=== PATIENT | female | born 1935 | race Caucasian/White ===

== ENCOUNTER 2020-04-13 11:41 | Observation (INO) | payer MEDICARE, SELFPAY ==
[2020-04-13] VITALS (10 sets, daily range): BP systolic 109–162; BP diastolic 50–79; PULSE 61–84; RESP 12–30; TEMP 36.2–36.5; O2SAT 96–100; BMI 19.0
--- NOTE | 2020-04-13 12:06 | XR_ITS ---
WS: [id number] Exam: XR chest 1V portable [id number] Date/Time of Exam: 04/13/2020 12:06 PM Reason For Exam: weakness Comparison 11/22/2017. The lungs are clear and fully inflated. Unremarkable cardiomediastinal structures. No pleural effusio ns. Signs of median sternotomy. Bony elements are intact. XR/XR chest 1V portable [id number] IMPRESSION: 1. No acute cardiopulmonary finding. No change.
--- NOTE | 2020-04-13 12:09 | ECG_ITS ---
[facility] Test Date: 2020-04-13 Pat Name: Anamika Mo Department: Room: Gender: Female Materials Assistant: : [id number] Requested By: Charlie Rossi Order Number: [id number] Adams MD: Gina Palacio M.D. Measurements Intervals [place] Rate: 63 P: 89 RI: 158 QRS: 2 QRSD: 95 T: 106 QT: 467 QTc: 482 Interpretive Statements SINUS RHYTHM LEFT VENTRICULAR HYPERTROPHY AND ST-T CHANGE [VOLTAGE CRITERIA PLUS ST/T ABNORMALITY] POSSIBLE SEPTAL MYOCARDIAL INFARCTION , PROBABLY OLD [30 ms Q WAVE IN V1/V2] No previous ECG available for comparison Electronically Signed On 04-13-2020 16:51:30 GENERAL OPHTHALMOLOGIST by Gina Palacio M.D. [id number] des
--- NOTE | 2020-04-13 12:12 | W.ED.GENADLT ---
HPI - General Adult General: Chief complaint: General Medical Stated complaint: PCP sent for dehyrdration Time Seen by Provider: 04/13/20 11:59 History of Present Illness: HPI narrative: The patient is an 84-year-old female who comes to the ER complaining of weakness, dehydration, and worsening diarrhea for 5 days. She was sent from Dr. Ervin's office for evaluation. She has had chronic diarrhea for 5 days however she says she has lost 30 pounds in 30 days and over the last 5 days her diarrhea is completely liquid with undigested food and some pills are even and it. She says she has seen multiple specialist about this over the years with no improvement in her symptoms. She is having some abdominal cramping with diarrhea but currently no pain in the ER. At home she has vomited once or twice. She also denies chest pain, shortness of breath, nausea, vomiting Onset (ago): day(s) Severity: moderate Associated symptoms: Reports decreased appetite, nausea, vomiting and weakness; Deny chest pain, confusion, cough, dyspnea or rash Review of Systems General: Reports: 10 or more systems reviewed and unremarkable except in HPI and below Const: Denies: fatigue Eyes: Denies: change in vision, blurry vision or eye redness ENMT: Denies: throat pain, swelling of lips/tongue, ear or mastoid pain or nasal congestion Card: Denies: chest pain Resp: Denies: dyspnea, productive cough or non-productive cough GI: Reports: nausea and vomiting : Denies: flank pain, difficulty voiding, urinary frequency or urinary urgency Musc: Denies: neck pain, back pain, extremity pain, joint pain, joint redness, limited range of motion or muscle weakness Skin/Breast: Denies: rash, pruritus, erythema, skin pain or skin tenderness Neuro: Denies: confusion Psych: Denies: anxiety or depression Endo: Denies: polyuria All/Imm: Denies: urticaria, throat swelling or tongue swelling PFSH ED PFSH: Social History (Updated 04/13/20 @ 11:57 by Emmanuel Cantu RN) Smoking and tobacco status: never smoked Alcohol intake: never Substance/Drug Use: never Physical Exam Const: COMMON NORMALS: no acute distress, average body habitus, patient oriented x3, no limitations, healthy appearing, alert and well nourished GENERAL APPEARANCE: cooperative, comfortable, well kempt and well developed ORIENTATION/CONSCIOUSNESS: Yes awake, Yes oriented to person, Yes oriented to place and Yes oriented to time HENMT: COMMON NORMALS: normocephalic, external ears normal and Normal external nose present HEAD & SCALP: normal to inspection and normocephalic NOSE: Normal external nose present EXTERNAL EAR: Yes external ears normal MOUTH: Normal oral and palatal mucosa present THROAT: posterior oropharynx normal Eye: COMMON NORMALS: Equal, round and reactive pupils present and EOMs intact bilaterally GENERAL EYE: appearance normal, both eyes and all related structures PUPIL: Yes Equal, round and reactive pupils present Neck/C-Spine: COMMON NORMALS: full ROM, no lymphadenopathy, no meningeal signs and no JVD GENERAL: Yes normal visual inspection Lymph: LYMPHATIC: no lymphadenopathy noted Chest: COMMONS NORMALS: normal inspection of the chest and normal palpation of entire chest wall Resp: COMMON NORMALS: normal respiratory effort, No retractions, No use of accessory muscles, clear to auscultation bilaterally and percussion normal EFFORT & INSPECTION: Yes able to speak in complete sentences AUSCULTATION: clear to auscultation bilaterally PERCUSSION: percussion normal Cardio: COMMON NORMALS: no JVD, regular rate, regular rhythm, S1 normal heart sound present, S2 normal heart sound present and Peripheral pulses 2+ throughout RATE: regular rate RHYTHM: regular rhythm HEART SOUNDS: S1 normal heart sound present and S2 normal heart sound present PERIPHERAL PULSES: Peripheral pulses 2+ throughout GI: COMMON NORMALS: Normal to inspection, nondistended, normoactive bowel sounds present, Soft to palpation, non-tender and no masses INSPECTION: Yes normal to inspection PALPATION: Yes Soft to palpation : COMMON NORMALS: Yes no CVA tenderness BLADDER/KIDNEY EXAM: Yes no CVA tenderness Back/Pelvis: COMMON NORMALS: no CVA tenderness, thoracic and lumbar spine normal to inspection, no thoracic nor lumbar tenderness and thoraco-lumbar ROM normal Extremity: COMMON NORMALS: normal to inspection, full ROM, capillary refill normal, no joint enlargement and no pedal edema GENERAL: Yes normal exam except as noted Neuro: COMMON NORMALS: patient oriented x3, CN's II-XII intact bilaterally, moves all extremities, no focal motor deficits, no sensory deficits noted and gait normal SENSORIUM/ORIENTATION: Yes alert, Yes oriented to person, Yes oriented to place and Yes oriented to time MENINGEAL SIGNS: Yes no meningeal signs Psych: COMMON NORMALS: mental status grossly normal, Normal thought process present, cooperative, normal affect and speech normal APPEARANCE: Yes well kempt ATTITUDE: Yes calm SPEECH: Yes normal speech THOUGHT PROCESS: Normal thought process present Skin: COMMON NORMALS: no rashes or lesions noted GENERAL SKIN EXAM: no rashes or lesions noted Course Vital Signs: Vital signs: Vital Signs Temperature 97.1 F L 04/13/20 11:51 Pulse Rate 74 04/13/20 16:51 Respiratory Rate 30 H 04/13/20 16:51 Blood Pressure 145/79 04/13/20 16:51 Pulse Oximetry 100 04/13/20 16:51 MDM - General Adult MDM Narrative: Medical decision making narrative: The patient is a 84-year-old female with chronic diarrhea and diabetes who comes to the ER with worsening diarrhea and weight loss as well as weakness. Her potassium is low and she has acute renal failure from the dehydration. Also her glucose is elevated and she is in mild diabetic ketoacidosis. She was given IV fluids and insulin and discussed with Dr. Sainz who accepts pending repeat BMP to see if DKA requires drip vs SQ dose. Dr. Sainz accepts to 2nd floor Lab Data: Labs: Lab Results 04/13/20 04/13/20 04/13/20 Range/Units 12:10 12:10 12:10 WBC 7.3 (4.0-10.0) 10^3/ uL RBC 4.72 (4.1-5.3) 10^6/u L Hgb 12.1 (11.5-15.3) g/dL Hct 39.7 (37.0-47.0) % MCV 84.1 (81-99) fL MCH 25.6 L (28.0-34.0) pg MCHC 30.5 (30.0-36.0) g/dL RDW 14.1 (12.1-15.1) % Plt Count 395 (130-400) 10^3/c mm MPV 10.9 H (7.4-10.4) fL Neut % (Auto) 68.1 % Lymph % (Auto) 22.8 % [place] % (Auto) 7.4 % Eos % (Auto) 0.5 % Baso % (Auto) 0.7 % Neut # (Auto) 5.00 (1.8-7.7) 10^3/u L Lymph # (Auto) 1.7 (0.8-4.8) 10^3/u L [place] # (Auto) 0.5 (0.2-0.9) 10^3/u L Eos # (Auto) 0.0 (0.0-0.8) 10^3/u L Baso # (Auto) 0.1 (0.0-0.1) 10^3/u L Nucleated RBC % (a uto) 0 % Nucleated RBCs # 0.0 /100WBC Specimen Type Sample Site ABG pH (7.35-7.45) ABG pCO2 (35-45) mmHg ABG pO2 (80.0-100.0) mmH g ABG HCO3 (22-26) mmol/L ABG Base Excess (-2.0-2.0) mmol/ L Geo Test Hematocrit (37-47) % Hgb O2 Saturation (95-100) % Carboxyhemoglobin (0.4-20.1) %THgb Methemoglobin (0.4-1.5) % Total Hemoglobin (12-16) g/dL O2 Delivery Device FiO2 % Senior Buyer ID Sodium 135 L (136-145) mmol/L Potassium 2.6 L* (3.5-5.1) mmol/L Chloride 88 L (98-107) mmol/L Carbon Dioxide 25 (22-29) mmol/L Anion Gap 24.6 H (5-19) BUN 44 H (8-23) mg/dL Creatinine 1.6 H (0.5-0.9) mg/dL GFR Calculation Not Reportable Glucose 476 H (65-115) mg/dL POC Glucose (70-110) mg/dL Calculated Osmolal ity 312 H (285-295) mOsm/k g Lactate 1.6 (0.5-2.2) mmol/L Calcium 10.2 (8.5-10.5) mg/dL Phosphorus 3.5 (2.5-4.5) mg/dL Magnesium 2.0 (1.7-2.3) mg/dL Total Bilirubin 0.4 (0.15-1.2) mg/dL AST 10 (0-32) U/L ALT 7 (0-33) U/L Alkaline Phosphata se 119 H (35-105) IU/L Troponin T Gen 5 n g/L (0-10) ng/L NT-Pro-B Natriuret Pep 1434 H (0-450) pg/mL Total Protein 8.0 (6.6-8.7) g/dL Albumin 4.2 (3.5-5.2) g/dL Globulin 3.8 (1.3-4.6) g/dL Lipase 19 (13-60) U/L Urine Color (Yellow) Urine Appearance (CLEAR) Urine pH (5-7) Ur Specific Gravit y (1.005-1.030) Urine Protein (Negative) Urine Glucose (UA) (Normal) Urine Ketones (Negative) Urine Blood (Negative) Urine Nitrate (Negative) Urine Bilirubin (Negative) Urine Urobilinogen (Negative) mg/dL Ur Leukocyte Nohelia ase (Negative) Serum Ketones (Negative) 04/13/20 04/13/20 04/13/20 Range/Units 12:10 12:10 14:19 WBC (4.0-10.0) 10^3/ uL RBC (4.1-5.3) 10^6/u L Hgb (11.5-15.3) g/dL Hct (37.0-47.0) % MCV (81-99) fL MCH (28.0-34.0) pg MCHC (30.0-36.0) g/dL RDW (12.1-15.1) % Plt Count (130-400) 10^3/c mm MPV (7.4-10.4) fL Neut % (Auto) % Lymph % (Auto) % [place] % (Auto) % Eos % (Auto) % Baso % (Auto) % Neut # (Auto) (1.8-7.7) 10^3/u L Lymph # (Auto) (0.8-4.8) 10^3/u L [place] # (Auto) (0.2-0.9) 10^3/u L Eos # (Auto) (0.0-0.8) 10^3/u L Baso # (Auto) (0.0-0.1) 10^3/u L Nucleated RBC % (a uto) % Nucleated RBCs # /100WBC Specimen Type Arterial Sample Site Brachial, left ABG pH 7.33 L (7.35-7.45) ABG pCO2 43.6 (35-45) mmHg ABG pO2 61.8 L (80.0-100.0) mmH g ABG HCO3 22.9 (22-26) mmol/L ABG Base Excess -3.0 L (-2.0-2.0) mmol/ L Geo Test N/a Hematocrit 32.9 L (37-47) % Hgb O2 Saturation 87.9 L (95-100) % Carboxyhemoglobin < 0.0 L (0.4-20.1) %THgb Methemoglobin 0.7 (0.4-1.5) % Total Hemoglobin 10.7 L (12-16) g/dL O2 Delivery Device Room air FiO2 21.0 % Senior Buyer ID Amh Sodium (136-145) mmol/L Potassium (3.5-5.1) mmol/L Chloride (98-107) mmol/L Carbon Dioxide (22-29) mmol/L Anion Gap (5-19) BUN (8-23) mg/dL Creatinine (0.5-0.9) mg/dL GFR Calculation Glucose (65-115) mg/dL POC Glucose (70-110) mg/dL Calculated Osmolal ity (285-295) mOsm/k g Lactate (0.5-2.2) mmol/L Calcium (8.5-10.5) mg/dL Phosphorus (2.5-4.5) mg/dL Magnesium (1.7-2.3) mg/dL Total Bilirubin (0.15-1.2) mg/dL AST (0-32) U/L ALT (0-33) U/L Alkaline Phosphata se (35-105) IU/L Troponin T Gen 5 n g/L 52 H (0-10) ng/L NT-Pro-B Natriuret Pep (0-450) pg/mL Total Protein (6.6-8.7) g/dL Albumin (3.5-5.2) g/dL Globulin (1.3-4.6) g/dL Lipase (13-60) U/L Urine Color (Yellow) Urine Appearance (CLEAR) Urine pH (5-7) Ur Specific Gravit y (1.005-1.030) Urine Protein (Negative) Urine Glucose (UA) (Normal) Urine Ketones (Negative) Urine Blood (Negative) Urine Nitrate (Negative) Urine Bilirubin (Negative) Urine Urobilinogen (Negative) mg/dL Ur Leukocyte Nohelia ase (Negative) Serum Ketones Positive H (Negative) 04/13/20 04/13/20 04/13/20 Range/Units 14:25 16:30 16:40 WBC (4.0-10.0) 10^3/ uL RBC (4.1-5.3) 10^6/u L Hgb (11.5-15.3) g/dL Hct (37.0-47.0) % MCV (81-99) fL MCH (28.0-34.0) pg MCHC (30.0-36.0) g/dL RDW (12.1-15.1) % Plt Count (130-400) 10^3/c mm MPV (7.4-10.4) fL Neut % (Auto) % Lymph % (Auto) % [place] % (Auto) % Eos % (Auto) % Baso % (Auto) % Neut # (Auto) (1.8-7.7) 10^3/u L Lymph # (Auto) (0.8-4.8) 10^3/u L [place] # (Auto) (0.2-0.9) 10^3/u L Eos # (Auto) (0.0-0.8) 10^3/u L Baso # (Auto) (0.0-0.1) 10^3/u L Nucleated RBC % (a uto) % Nucleated RBCs # /100WBC Specimen Type Sample Site ABG pH (7.35-7.45) ABG pCO2 (35-45) mmHg ABG pO2 (80.0-100.0) mmH g ABG HCO3 (22-26) mmol/L ABG Base Excess (-2.0-2.0) mmol/ L Geo Test Hematocrit (37-47) % Hgb O2 Saturation (95-100) % Carboxyhemoglobin (0.4-20.1) %THgb Methemoglobin (0.4-1.5) % Total Hemoglobin (12-16) g/dL O2 Delivery Device FiO2 % Senior Buyer ID Sodium 137 (136-145) mmol/L Potassium 3.9 (3.5-5.1) mmol/L Chloride 97 L (98-107) mmol/L Carbon Dioxide 27 (22-29) mmol/L Anion Gap 16.9 (5-19) BUN 43 H (8-23) mg/dL Creatinine 1.1 H (0.5-0.9) mg/dL GFR Calculation Not Reportable Glucose 306 H (65-115) mg/dL POC Glucose 300 H (70-110) mg/dL Calculated Osmolal ity 306 H (285-295) mOsm/k g Lactate (0.5-2.2) mmol/L Calcium 9.1 (8.5-10.5) mg/dL Phosphorus (2.5-4.5) mg/dL Magnesium (1.7-2.3) mg/dL Total Bilirubin (0.15-1.2) mg/dL AST (0-32) U/L ALT (0-33) U/L Alkaline Phosphata se (35-105) IU/L Troponin T Gen 5 n g/L (0-10) ng/L NT-Pro-B Natriuret Pep (0-450) pg/mL Total Protein (6.6-8.7) g/dL Albumin (3.5-5.2) g/dL Globulin (1.3-4.6) g/dL Lipase (13-60) U/L Urine Color Yellow (Yellow) Urine Appearance Clear (CLEAR) Urine pH 5 (5-7) Ur Specific Gravit y 1.015 (1.005-1.030) Urine Protein Neg (Negative) Urine Glucose (UA) 4+ H (Normal) Urine Ketones 2+ H (Negative) Urine Blood Neg (Negative) Urine Nitrate Negative (Negative) Urine Bilirubin Neg (Negative) Urine Urobilinogen Norm (Negative) mg/dL Ur Leukocyte Nohelia ase Negative (Negative) Serum Ketones (Negative) Discharge Plan Discharge Patient Disposition: Admitted As Inpatient Clinical Impression: Acute hypokalemia Acute renal failure Qualifiers: Acute renal failure type: unspecified Qualified Code(s): N17.9 - Acute kidney failure, unspecified Diabetic keto-acidosis Qualifiers: Diabetes mellitus type: type 2 Diabetes mellitus complication detail: without coma Qualified Code(s): E11.10 - Type 2 diabetes mellitus with ketoacidosis without coma Condition: Stable Coding Level of Care Code ED Billing Associate for Chg Fwd Exam Comprehensive
[2020-04-13] MEDS: ondansetron 2 mg/ML SDV 2 mL 4 MG IVP (12:19)
[2020-04-13] MEDS: sodium chloride 0.9% 1,000 ML 999 ML IV (12:19)
[2020-04-13 12:34] LABS: Basophils # 0.1 10^3/uL (0.0-0.1); Basophils % 0.7 %; Eosinophils % 0.5 %; Hematocrit 39.7 % (37.0-47.0); Hemoglobin 12.1 g/dL (11.5-15.3); Lymphocytes # 1.7 10^3/uL (0.8-4.8); Lymphocytes % 22.8 %; Mean Corpuscular HGB Conc 30.5 g/dL (30.0-36.0); Mean Corpuscular Hemoglobin 25.6 pg (28.0-34.0); Mean Corpuscular Volume 84.1 fL (81-99); Mean Platelet Volume 10.9 fL (7.4-10.4); Monocytes # 0.5 10^3/uL (0.2-0.9); Monocytes % 7.4 %; Neutrophils % 68.1 %; Nucleated Red Blood Cells % 0 %; Platelet Count 395 10^3/cmm (130-400); Red Blood Count 4.72 10^6/uL (4.1-5.3); Red Cell Distribution Width 14.1 % (12.1-15.1); White Blood Count 7.3 10^3/uL (4.0-10.0)
[2020-04-13 12:54] LABS: Lactate (Lactic Acid level) 1.6 mmol/L (0.5-2.2)
[2020-04-13 12:55] LABS: Troponin T (5th) Once 52 ng/L (0-10)
[2020-04-13 13:54] LABS: Alanine Aminotransferase 7 U/L (0-33); Albumin Level 4.2 g/dL (3.5-5.2); Alkaline Phosphatase 119 IU/L (35-105); Anion Gap 24.6 (5-19); Aspartate Amino Transferase 10 U/L (0-32); Blood Urea Nitrogen 44 mg/dL (8-23); Calcium 10.2 mg/dL (8.5-10.5); Carbon Dioxide 25 mmol/L (22-29); Chloride 88 mmol/L (98-107); Globulin 3.8 g/dL (1.3-4.6); Glucose 476 mg/dL (65-115); Lipase 19 U/L (13-60); NT Pro B Type Natriuretic Pept 1434 pg/mL (0-450); Osmolality Calculated 312 mOsm/kg (285-295); Phosphorus 3.5 mg/dL (2.5-4.5); Sodium 135 mmol/L (136-145); Total Bilirubin 0.4 mg/dL (0.15-1.2)
[2020-04-13 14:00] LABS: Potassium 2.6 mmol/L (3.5-5.1)
[2020-04-13 14:30] LABS: ABG PCO2 43.6 mmHg (35-45); ABG PH Result 7.33 (7.35-7.45); Arterial Blood Gas Hematocrit 32.9 % (37-47); Blood Gas Operator Identificat AMH; Blood Gas Sample Site Brachial, left; Blood Gas Sample Type Arterial; Carboxyhemoglobin < 0.0 %THgb (0.4-20.1); HCO3 ABG 22.9 mmol/L (22-26); HGB O2 Sat 87.9 % (95-100); Methemoglobin 0.7 % (0.4-1.5); Oxygen Device ROOM AIR; PO2 ABG 61.8 mmHg (80.0-100.0); Total Hemoglobin 10.7 g/dL (12-16)
[2020-04-13] MEDS: lidocaine 1% 5 ML in potassium chloride premix 100 ML 25 ML IV (14:30)
[2020-04-13] MEDS: insulin regular-human 100 units/1 mL 10 UNIT IVP (14:31)
[2020-04-13 15:00] LABS: Ketone (Acetest) Serum Positive (Negative)
[2020-04-13 15:07] LABS: Add Urine Microscopic? NO
[2020-04-13 15:27] LABS: Bilirubin Urine Neg (Negative); Blood Urine Neg (Negative); Glucose Urine UA 4+ (Normal); Ketones Urine 2+ (Negative); Leukocyte Esterase Urine Negative (Negative); Nitrate Urine Negative (Negative); Protein Urine Neg (Negative); Specific Gravity, Urine 1.015 (1.005-1.030); Urine Appearance Clear (CLEAR); Urine Color Yellow (Yellow); Urobilinogen Urine Norm (Negative); pH Urine 5 (5-7)
[2020-04-13 16:43] LABS: Glucose Point of Care 300 mg/dL (70-110)
--- NOTE | 2020-04-13 16:56 | PM.HP ---
Providers/Chief Complaint Admitting Physician: Carolina Sainz MD Chief Complaint: Sent from [place]/Needing Fluids/Unable to Eat History of Present Illness Anamika Mo is a 84 year old female with chornic diarrhea of unclear etiology, being evaluted at [place] by GI, thought to be possible pancreatic cause, has had significant weight loss in the last 3-4 months, went for f/up with PCP where she was found to be appearing more dehydrated than previously and sent to ER. Labs notable for blood sugar 476 (has not taken insulin since yesterday), ketonuria and hypokalemia with K of 2.6. Reports generalized weakness. No fever, abdominal pain, vomiting. Diarrhea 4-5 episodes per day with passage of undigested food, unchanged from recent baseline Review of Systems General: Reports: 10 or more systems reviewed and unremarkable except in HPI and below Const: Denies: fever(s), chills or body aches Eyes: Denies: change in vision, blurry vision or photophobia ENMT: Reports: hoarseness; Denies: throat pain, enlarged tonsils, odynophagia or nasal congestion Card: Denies: chest pain, palpitations, irregular heart rhythm, edema, swelling of feet/ankles, lightheadedness, pre-syncope, dyspnea on exertion or orthopnea Resp: Denies: dyspnea, productive cough, non-productive cough, wheezing, stridor, pain on inspiration, change in phlegm color, hemoptysis or chest congestion GI: Denies: abdominal pain, nausea, vomiting, hematemesis, coffee ground emesis, dysphagia, heartburn, diarrhea, constipation, GI cramping, change in stool character, hematochezia or melena : Denies: flank pain, difficulty voiding, dysuria, urinary frequency, urinary urgency, urinary hesitancy or hematuria Musc: Denies: neck pain, back pain, extremity pain, joint swelling, joint warmth or deformity Neuro: Denies: headache(s), numbness in extremities, weakness in extremities, sensory changes, difficulty walking, frequent falls, dizziness, vertigo, behavioral changes, Slurred speech present or seizure-like activity Psych: Denies: anxiety, depression, suicidal ideation or homicidal ideation Endo: Denies: polyuria, polydipsia, tired all the time, cold intolerance or hot flashes Iam/Lymph: Denies: easy bruising or easy bleeding Medications/Allergies Home Medications Medication Instructions Recorded Confirmed Last Taken Type buspirone 10 mg PO TID PRN 04/13/20 04/13/20 04/12/20 History clopidogrel 75 mg PO DAILY@0900 04/13/20 04/13/20 04/12/20 History cyanocobalamin (vitamin B-12) 1,000 mcg IM Q30D 04/13/20 04/13/20 Unknown History furosemide 20 mg PO DAILY@0904/13/20 04/13/20 04/12/20 History insulin detemir U-100 [Levemir 30 unit SUBCUT DAILY@199904/13/20 04/13/20 04/11/20 History FlexTouch U-100 Insuln] levothyroxine 50 mcg PO DAILY@0904/13/20 04/13/20 04/12/20 History liothyronine 5 mcg PO DAILY@0904/13/20 04/13/20 04/12/20 History lisinopril 20 mg PO DAILY@0904/13/20 04/13/20 04/12/20 History metoprolol succinate 50 mg PO BID@0900,199904/13/20 04/13/20 04/12/20 History venlafaxine 150 mg PO DAILY@0904/13/20 04/13/20 04/12/20 History Allergies Allergy/AdvReac Type Severity Reaction Status Date / Time No Known Allergies Allergy Verified 04/13/20 11:57 PFSH Acute PFSH: Social History Smoking and tobacco status: never smoked Alcohol intake: never Substance/Drug Use: never Vitals/I&O/Wt Last Vital Signs Temp 97.1 F L 04/13/20 11:51 Pulse 72 04/13/20 16:00 Resp 30 H 04/13/20 16:00 BP 162/74 04/13/20 16:00 Pulse Ox 98 04/13/20 16:00 04/13/20 04/13/20 04/13/20 06:59 14:59 22:59 Intake Total 1000 / 1000 Balance 1000 / 1000 Weight last 48 hrs Weight 50.349 kg Physical Exam Const: COMMON NORMALS: no acute distress, average body habitus, patient oriented x3, no limitations, healthy appearing, alert and well nourished HENMT: COMMON NORMALS: normocephalic and atraumatic HEAD & SCALP: normocephalic and atraumatic Eye: COMMON NORMALS: Equal, round and reactive pupils present, EOMs intact bilaterally, conjunctivae normal and no scleral icterus CONJUNCTIVA: Yes conjunctivae normal PUPIL: Yes Equal, round and reactive pupils present Neck/C-Spine: COMMON NORMALS: no JVD Resp: COMMON NORMALS: normal respiratory effort, No retractions, No use of accessory muscles, clear to auscultation bilaterally and percussion normal AUSCULTATION: clear to auscultation bilaterally PERCUSSION: percussion normal Cardio: COMMON NORMALS: no JVD, regular rate, regular rhythm, S1 normal heart sound present, S2 normal heart sound present, No gallops present (Cardio), No clicks present (Cardio), No murmurs present (Cardio), No rub (Cardio) and Peripheral pulses 2+ throughout RATE: regular rate RHYTHM: regular rhythm HEART SOUNDS: S1 normal heart sound present and S2 normal heart sound present PERIPHERAL PULSES: Peripheral pulses 2+ throughout GI: COMMON NORMALS: Normal to inspection, nondistended, normoactive bowel sounds present, Soft to palpation, non-tender, No hepatosplenomegaly present, no masses and no bruits PALPATION: Yes Soft to palpation and Yes No hepatosplenomegaly present Extremity: COMMON NORMALS: normal to inspection, full ROM, capillary refill normal, no joint enlargement, no clubbing, cyanosis or edema, no calf tenderness and no pedal edema Neuro: COMMON NORMALS: patient oriented x3, CN's II-XII intact bilaterally, moves all extremities, no focal motor deficits, no sensory deficits noted, deep tendon reflexes 2+ bilaterally and gait normal SENSORIUM/ORIENTATION: Yes alert Psych: COMMON NORMALS: mental status grossly normal, Normal thought process present, cooperative, normal affect, speech normal, activity/motor behavior normal, denies hallucinations, denies homicidal ideation and denies suicidal ideation SPEECH: Yes normal speech THOUGHT PROCESS: Normal thought process present Skin: COMMON NORMALS: no rashes or lesions noted, no wounds, turgor normal, no jaundice, no petechiae and no mottling GENERAL SKIN EXAM: no rashes or lesions noted and turgor normal Data : 04/13/20 12:10 04/13/20 16:30 A&P Assessment and plan (1) Acute hypokalemia: replete with iv supplementation Status: Acute (2) Diabetic keto-acidosis: BS 476, Anion gap 19, ketonemia, receoved 10 units of regular insulin this afternoon, now with closed gap, Bs 300, transition to sliding scae insulin now Status: Acute Qualifiers: Diabetes mellitus complication detail: without coma Diabetes mellitus type: type 2 Qualified Code(s): E11.10 - Type 2 diabetes mellitus with ketoacidosis without coma (3) Acute renal failure: likely secondary to dehydration dry parched skin on exam IVF NS with KCL @ 75cc/hr Status: Acute Qualifiers: Acute renal failure type: unspecified Qualified Code(s): N17.9 - Acute kidney failure, unspecified Attestations Medical Necessity Statement*: observation admission for dehydartion, iv fluids, insulin for DKA and hypokalemia Coding Level of Care Code Acute Amusement Or Recreation Card Checker for [facility] Diagnoses Acute hypokalemia E87.6 Diabetic keto-acidosis E11.10 Diabetes mellitus complication detail: without coma Diabetes mellitus type: type 2 Acute renal failure N17.9 Acute renal failure type: unspecified
[2020-04-13 17:22] LABS: Blood Urea Nitrogen 43 mg/dL (8-23); Calcium 9.1 mg/dL (8.5-10.5); Carbon Dioxide 27 mmol/L (22-29); Chloride 97 mmol/L (98-107); Glucose 306 mg/dL (65-115); Osmolality Calculated 306 mOsm/kg (285-295); Sodium 137 mmol/L (136-145)
[2020-04-13] MEDS: sodium chlor 0.9% + KCl 20 mEq 20 MEQ/1,000 ML BAG 100 MEQ IV ×2 (17:31→23:12)
[2020-04-13 17:32] LABS: Anion Gap 16.9 (5-19); Potassium 3.9 mmol/L (3.5-5.1)
--- NOTE | 2020-04-13 19:47 | PC.NURSE ---
Tried to call report to Med-Surg. No answer, phone kept ringing.
[2020-04-13 21:01] LABS: Glucose Point of Care 224 mg/dL (70-110)
[2020-04-13] MEDS: metoprolol succinate ER (24 HR) 50 mg Tablet PO (22:26)
[2020-04-14] VITALS: BP 133/71; PULSE 75; RESP 18; TEMP 36.6; O2SAT 99
[2020-04-14 01:52] LABS: Glucose Point of Care 165 mg/dL (70-110)
[2020-04-14 03:37] VITALS: BP 101/63; PULSE 58; RESP 12; TEMP 36.2; O2SAT 96
[2020-04-14 06:36] LABS: Alanine Aminotransferase 7 U/L (0-33); Alkaline Phosphatase 91 IU/L (35-105); Anion Gap 12.4 (5-19); Aspartate Amino Transferase 10 U/L (0-32); Calcium 9.3 mg/dL (8.5-10.5); Carbon Dioxide 29 mmol/L (22-29); Chloride 101 mmol/L (98-107); Globulin 2.6 g/dL (1.3-4.6); Glucose 105 mg/dL (65-115); Sodium 140 mmol/L (136-145); Thyroid Stimulating Hormone 3.52 uIU/mL (0.27-4.20); Total Bilirubin 0.3 mg/dL (0.15-1.2)
[2020-04-14 06:48] LABS: Blood Urea Nitrogen 35 mg/dL (8-23); Osmolality Calculated 298 mOsm/kg (285-295); Potassium 2.4 mmol/L (3.5-5.1)
[2020-04-14 06:49] LABS: Total Protein 5.8 g/dL (6.6-8.7)
[2020-04-14 06:50] LABS: Albumin Level 3.2 g/dL (3.5-5.2)
[2020-04-14 07:22] LABS: Glucose Point of Care 147 mg/dL (70-110)
[2020-04-14] MEDS: lidocaine 1% 5 ML in potassium chloride premix 100 ML 25 ML IV (07:33)
[2020-04-14 08:00] VITALS: BP 106/65; PULSE 59; RESP 18; TEMP 36.5; O2SAT 97
[2020-04-14] MEDS: liothyronine 5 mcg Tablet PO (09:13)
[2020-04-14] MEDS: levothyroxine 50 mcg Tablet PO (09:13)
[2020-04-14] MEDS: venlafaxine ER (24HR) 150 mg Capsule PO (09:13)
[2020-04-14] MEDS: metoprolol succinate ER (24 HR) 50 mg Tablet PO (09:14)
[2020-04-14] MEDS: clopidogrel 75 mg Tablet PO (09:14)
[2020-04-14] MEDS: sodium chlor 0.9% + KCl 20 mEq 20 MEQ/1,000 ML BAG 100 MEQ IV (10:35)
--- NOTE | 2020-04-14 10:53 | PC.CHAP ---
Pastoral Care Encounter/Spiritual Assessment Type of Contact [] Declined immersion metalcleaner visit [] Patient/Family/Request visit [] Outpatient visit [] Follow-up visit [] Physician referral [] Code/Alert [] Routine visit [] Staff referral [] Actively dying [] Patient sleeping [] Family support [] [] Out of room [] Palliative care [] [] Receiving care in room [] Pre-surgical visit [] Trauma [] Long length of stay [] ICU visit [x] Other: unable to communicate Relational/Emotional Strength [] Patient feels connected with others/family/visitors/staff [] Distress [x] Loneliness/isolation [] Abandonment Spirituality of Patient [] Person of Emily [] Attends Sikh of their Emily [] Believes in Prayer [] Reads Bible or Synagogue materials [] There are Spiritual issues to be addressed Manager Military Interventions [] Prayer [] Active listening [] Non-anxious presence [] Spiritual/emotional support [] Crisis/trauma care [] Spiritual counseling [] Bereavement support [] Provided bereavement packet [] Provided Bible/devotional materials [] Provided toy/stuffed animal, coloring book to patient or family member [] Provided Communion [] Anointing/[place] [] Salvation [] Completed spiritual assessment [] Other: Impact on Illness or Injury [] Angry [] Fearful [] Anxious [] Often cries [] Exhaustion [] Unable to work [] Unable to attend rastafarian [] Unable to walk/stand [] Unable to read [] Unable to drive [] Unable to eat/drink [] Unable to sleep [] Unable to be with family [x] Patient intubated [] Other: Summary unable to communicate Time spent with patient 5 mins
[2020-04-14 10:57] LABS: Glucose Point of Care 209 mg/dL (70-110)
[2020-04-14 12:00] VITALS: BP 168/77; PULSE 69; RESP 18; TEMP 37.2; O2SAT 96
[2020-04-14] MEDS: potassium chloride premix 100 ML 25 MEQ IV (12:30)
[2020-04-14] MEDS: potassium chloride ER 20 mEq Tablet 60 MEQ PO (12:31)
[2020-04-14 16:00] VITALS: BP 137/71; PULSE 75; RESP 18; TEMP 37.4; O2SAT 94
[2020-04-14 17:31] LABS: Glucose Point of Care 274 mg/dL (70-110)
[2020-04-14 18:24] VITALS: BP 137/71; PULSE 75; RESP 18; TEMP 37.4; O2SAT 94
--- NOTE | 2020-04-14 18:50 | PC.NURSE ---
Discharge instruction given to patient,voiced full understanding. IV DC'd cath intact bleeding controlled with 2x2 and tape. patient to main entrance via wheelchair to private vehicle with zero difficulty
--- NOTE | 2020-04-23 18:16 | PM.DCS ---
Discharge Providers Date of Admission: 04/13/20 17:33 Date of Discharge: 04/14/2020 Attending Provider at Admission: Carolina Sainz MD Attending Provider at Discharge: Carolina Sainz MD Diagnoses at Discharge Discharge Diagnosis (1) Acute hypokalemia: Status: Resolved (2) Diabetic keto-acidosis: Status: Resolved Qualifiers: Diabetes mellitus complication detail: without coma Diabetes mellitus type: type 2 Qualified Code(s): E11.10 - Type 2 diabetes mellitus with ketoacidosis without coma (3) Acute renal failure: Status: Resolved Qualifiers: Acute renal failure type: unspecified Qualified Code(s): N17.9 - Acute kidney failure, unspecified Reason for Visit Reason for Visit: Sent from [place]/Needing Fluids/Unable to Eat Hospital Course Hospital Course Anamika Mo is a 84 year old female with chornic diarrhea of unclear etiology, being evaluted at [facility] by GI, thought to be possible pancreatic cause, has had significant weight loss in the last 3-4 months, went for f/up with PCP where she was found to be appearing more dehydrated than previously and sent to ER. Labs notable for blood sugar 476 (has not taken insulin since yesterday), ketonuria and hypokalemia with K of 2.6. Reports generalized weakness. No fever, abdominal pain, vomiting. Diarrhea 4-5 episodes per day with passage of undigested food, unchanged from recent baseline. She was managed with insulin which resolved the hyperglycemia, potassium was adequately repleted with iv and po supplementation. She has previously been instructed to take po potassium supplementation at home at 40meq daily, however has not been compliant with the same due to unpalatability. Patient's dehydration and creatinine improved from 1.6--> 0.8 with hydration. Encouraged to keep up oral hydration at home. FOllow up with GI in [place] for evaluation of persisent diarrhea. Physical Exam Narrative: EXAM NARRATIVE: GEN: Awake, alert and oriented, no acute distress CVS: S1S2 N RS: CTA B/L Abd: Soft, nt/nd , bs+ CREDIT ADMINISTRATION MANAGER: no focal neuro deficits Discharge Data Data Completed and Pending: Completed Studies During Hospitalization Category Date Time Status XR chest 1V timbo ble 76885 Urgent Exams 04/13/20 12:06 Completed Vitals: Last Vital Signs Temp 99.3 F 04/14/20 18:24 Pulse 75 04/14/20 18:24 Resp 18 04/14/20 18:24 BP 137/71 04/14/20 18:24 Pulse Ox 94 04/14/20 18:24 Discharge Plan Discharge Patient Disposition: Home Condition: Stable Prescriptions: New potassium chloride 40 mEq/15 mL liquid 40 meq PO DAILY Qty: 473 RF: 0 Continued metoprolol succinate 50 mg tablet extended release 24 hr 50 mg PO BID@0900,1999 RF: 0 lisinopril 20 mg tablet 20 mg PO DAILY@0900 RF: 0 venlafaxine 150 mg capsule,extended release 24hr 150 mg PO DAILY@0900 RF: 0 clopidogrel 75 mg tablet 75 mg PO DAILY@0900 RF: 0 liothyronine 5 mcg tablet 5 mcg PO DAILY@0900 RF: 0 levothyroxine 50 mcg tablet 50 mcg PO DAILY@0900 RF: 0 cyanocobalamin (vitamin B-12) 1,000 mcg/mL solution 1,000 mcg IM Q30D RF: 0 buspirone 10 mg tablet 10 mg PO TID PRN (Reason: Anxiety) RF: 0 furosemide 20 mg tablet 20 mg PO DAILY@0900 RF: 0 Levemir FlexTouch U-100 Insuln 100 unit/mL (3 mL) insulin pen 30 unit SUBCUT DAILY@1999 RF: 0 Discharge Orders: Discharge Order (Routine); Ordered 04/14/20 Ordered By: Carolina Sainz Referrals: Gladys Gilbert MD [Referring] - 7-10 days (Please call Dr. Gilbert's office and make an appointment to see her in the next 7-10 days. ) Discharge Diet: Usual diet and GI Soft Discharge Activity: Resume usual activity Patient Instructions: Potassium Chloride (By mouth), Acute Kidney Injury (DC), Hypokalemia (DC), Diabetic Ketoacidosis (DC) Discharge Attestations Time Spent in Discharge Care*: greater than 30 min Specific Discharge Activities: educating patient, educating and/or supporting family/caregiver and documenting/other paperwork Quality Metrics Clinical Quality Measures During this hospital stay, did patient experience: None Coding Level of Care Code Acute Paralegal Secretary for [facility] Fwd Diagnoses Acute hypokalemia E87.6 Diabetic keto-acidosis E11.10 Diabetes mellitus complication detail: without coma Diabetes mellitus type: type 2 Acute renal failure N17.9 Acute renal failure type: unspecified
== END 2020-04-14 18:50 | disposition home or self-care (01) ==
LOC: ER 17:49 → MEDSURG 04-14 05:36
PROVIDERS: Admitting Provider Student in an Organized Health Care Education/Training Program; Emergency Provider Family Medicine; Visit Provider Student in an Organized Health Care Education/Training Program
DX: E87.6 Hypokalemia (principal); E11.10 Type 2 diabetes mellitus with ketoacidosis without coma; N17.9 Acute kidney failure, unspecified; Z79.4 Long term (current) use of insulin
CPT/HCPCS: 12345; 36415; 36416; 36600; 71045; 80048; 80053; 81003; 82009; 82805; 82962; 83605; 83690; 83735; 83880; 84100; 84132; 84443; 84484; 85025; 93005; 96365; 96366; 96367; 96372; 96375; 99283; 99285; G0378; J1815; J2405; J3480; J7030

== ENCOUNTER 2020-05-17 17:52 | Emergency (ER) | payer MEDICARE, SELFPAY ==
[2020-05-17 18:03] VITALS: BP 140/83; PULSE 83; RESP 17; TEMP 36.6; O2SAT 98; BMI 19.2
[2020-05-17 18:10] VITALS: PULSE 87; RESP 16; O2SAT 100
--- NOTE | 2020-05-17 18:12 | CTR_ITS ---
PROCEDURE INFORMATION: Exam: CT Cervical Spine Without Contrast Exam date and time: 05/17/2020 6:58 PM Age: 84 years old Clinical indication: Injury or trauma; Fall; Blunt trauma TECHNIQUE: Imaging protocol: Computed tomography images of the cervical spine without contrast. Total images: 298 Radiation optimization: All CT scans at this facility use at least one of these dose optimization techniques: automated exposure control; mA and/or kV adjustment per patient size (includes targeted exams where dose is matched to clinical indication); or iterative reconstruction. COMPARISON: No relevant prior studies available. RADIATION DOSE METRICS: Total DLP (mGy-cm): 269.35 FINDINGS: Bones/joints: No visible fracture, subluxation, or dislocation. Increase in the normal cervical lordosis. Osteopenia/osteoporosis. 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 Facet arthrosis most advanced on the left C3/C4 and C4/C5. No visible traumatic spondylolysis or spondylolisthesis. Discs/Spinal canal/Neural foramina: Advanced degenerative disc disease with disc space height loss and vacuum disc phenomenon C5/C6 and to a less significant degree C6/C7. No visible severe central canal stenosis or neural foraminal stenosis. Lungs: Lung apices are normal. Soft tissues: Unremarkable. CT/CT cervical spin wo con* [id number] IMPRESSION: No visible fracture, subluxation, or dislocation. Radiation Dose CTDIVOL = (mGy): DLP = 269.35 (mGy-cm)
--- NOTE | 2020-05-17 18:13 | ED_ITS ---
HPI - Fall General: Chief Complaint: Fall Stated Complaint: R SHOULDER PAIN Time Seen by Provider: 05/17/20 18:01 Source: patient Mode of arrival: EMS Limitations: no limitations History of Present Illness: HPI Narrative: 84-year-old female states she was at [facility] and tripped as she was walking out and fell. States she landed on her right side and struck her head. She is a mild headache along with slight neck and lower back pain. States she has shoulder pain but has full range of motion of that right shoulder. She denies any other injuries. Denies any worsening improving factors. States pain is currently a 4 out of 10. Associated symptoms-after fall: Reports neck pain; Denies abdominal pain, chest pain or headache(s) Review of Systems Const: Denies: fever(s), chills, body aches or change in appetite Eyes: Denies: blurry vision or eye discomfort ENMT: Denies: throat pain or dental pain Card: Denies: chest pain Resp: Denies: dyspnea GI: Denies: abdominal pain, nausea, vomiting or diarrhea : Denies: dysuria Musc: Reports: neck pain, back pain and joint pain Skin/Breast: Denies: rash Neuro: Denies: headache(s) Psych: Denies: depression Iam/Lymph: Denies: easy bruising All/Imm: Denies: urticaria PFSH ED PFSH: Social History Smoking and tobacco status: never smoked Alcohol intake: never Physical Exam Const: COMMON NORMALS: no acute distress, patient oriented x3 and healthy appearing HENMT: COMMON NORMALS: normocephalic and atraumatic HEAD & SCALP: normocephalic and atraumatic Eye: COMMON NORMALS: Equal, round and reactive pupils present and EOMs intact bilaterally PUPIL: Yes Equal, round and reactive pupils present Neck/C-Spine: COMMON NORMALS: full ROM and supple Chest: COMMONS NORMALS: normal inspection of the chest and normal palpation of entire chest wall Resp: COMMON NORMALS: normal respiratory effort, No retractions, No use of accessory muscles and clear to auscultation bilaterally AUSCULTATION: clear to auscultation bilaterally Cardio: COMMON NORMALS: regular rate, regular rhythm and No murmurs present (Cardio) RATE: regular rate RHYTHM: regular rhythm GI: COMMON NORMALS: Normal to inspection, nondistended, normoactive bowel sounds present, Soft to palpation, non-tender and no masses PALPATION: Yes Soft to palpation Extremity: COMMON NORMALS: normal to inspection NARRATIVE EXTREMITY EXAM: slight tenderness over right shoulder with no obvious deformity Neuro: COMMON NORMALS: patient oriented x3, moves all extremities and no focal motor deficits Psych: COMMON NORMALS: mental status grossly normal, Normal thought process present and cooperative THOUGHT PROCESS: Normal thought process present Skin: COMMON NORMALS: no rashes or lesions noted and no wounds GENERAL SKIN EXAM: no rashes or lesions noted Course Vital Signs: Vital signs: Vital Signs Temperature 97.8 F 05/17/20 18:03 Pulse Rate 72 05/17/20 19:25 Respiratory Rate 18 05/17/20 19:25 Blood Pressure 141/64 05/17/20 19:25 Pulse Oximetry 99 05/17/20 19:25 MDM - Fall MDM Narrative: Medical decision making narrative: Patient presents here with shoulder contusion along with closed head injury after a fall. Patient's x-ray and CT scans here are normal with no fractures. She feels much improved and is able to move her arm without any difficulty. She is stable for discharge is to follow-up with PCP in 2 to 4 days return if worsening. She understands agrees to plan. Imaging Data^: xr shoulder r: Attestation: I personally reviewed and interpreted this imaging study as follows: Radiologist's impression: [address] [address] XRay Report Signed Patient: Anamika Mo Unit #: [id number] : 1935 Age/Sex: 84 / F ADM Date: 05/17/20 Loc: ER Room/Bed: Attending Dr: Ordering Provider/Ordering MD: Rehana Ross MD Date of Service: 05/17/20 Procedure(s): XR shoulder RT min 2V* [id number] Accession Number(s): [id number] Report Number: [id number] PROCEDURE INFORMATION: Exam: XR Right Shoulder Exam date and time: 05/17/2020 6:14 PM Age: 84 years old Clinical indication: Injury or trauma; Blunt trauma (contusions or hematomas); Injury details: Fall @[employer], right shoulder and elbow pain TECHNIQUE: Imaging protocol: XR Right shoulder. Views: 2 or more views. COMPARISON: No relevant prior studies available. FINDINGS: Bones/joints: Negative for acute fracture or dislocation. Soft tissues: There is a linear calcific density adjacent to the humeral head corresponding to calcific tendinitis. XR/XR shoulder RT min 2V* [id number] IMPRESSION: 1. No acute right shoulder bone abnormality. 2. Calcific tendinitis CT Head: Radiologist's impression: [address] [place] [address] CT Scan Report Signed Patient: Anamika Mo Unit #: [id number] : 1935 Age/Sex: 84 / F ADM Date: 05/17/20 Loc: ER Room/Bed: Attending Dr: Ordering Provider/Ordering MD: Rehana Ross MD Date of Service: 05/17/20 Procedure(s): CT head wo con* [id number] Accession Number(s): [id number] Report Number: [id number] PROCEDURE INFORMATION: Exam: CT Head Without Contrast Exam date and time: 05/17/2020 6:58 PM Age: 84 years old Clinical indication: Injury or trauma; Fall; Blunt trauma (contusions or hematomas) TECHNIQUE: Imaging protocol: Computed tomography of the head without contrast. Total images: 203 Radiation optimization: All CT scans at this facility use at least one of these dose optimization techniques: automated exposure control; mA and/or kV adjustment per patient size (includes targeted exams where dose is matched to clinical indication); or iterative reconstruction. COMPARISON: CT head wo con* [id number] 09/17/2018 6:04 PM RADIATION DOSE METRICS: Total DLP (mGy-cm): 797.88 FINDINGS: Brain: No evidence of active or acute intracranial pathologic process, hemorrhage, or trauma. 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 Cerebral and cerebellar atrophy with ventricular dilatation greater than anticipated for patient's chronological age. No mass effect. No midline shift. Cerebral ventricles: No ventriculomegaly. Bones/joints: Unremarkable. No acute fracture. Paranasal sinuses: Visualized sinuses are unremarkable. No fluid levels. Mastoid air cells: Visualized mastoid air cells are well aerated. Soft tissues: Unremarkable. CT/CT head wo con* [id number] IMPRESSION: No evidence of active or acute intracranial pathologic process, hemorrhage, or trauma. ct c spine: Radiologist's impression: [facility] [place] [address] CT Scan Report Signed Patient: Anamika Mo Unit #: [id number] : 1935 Age/Sex: 84 / F ADM Date: 05/17/20 Loc: ER Room/Bed: Attending Dr: Ordering Provider/Ordering MD: Rehana Ross MD Date of Service: 05/17/20 Procedure(s): CT head wo con* [id number] Accession Number(s): [id number] Report Number: [id number] PROCEDURE INFORMATION: Exam: CT Head Without Contrast Exam date and time: 05/17/2020 6:58 PM Age: 84 years old Clinical indication: Injury or trauma; Fall; Blunt trauma (contusions or hematomas) TECHNIQUE: Imaging protocol: Computed tomography of the head without contrast. Total images: 203 Radiation optimization: All CT scans at this facility use at least one of these dose optimization techniques: automated exposure control; mA and/or kV adjustment per patient size (includes targeted exams where dose is matched to clinical indication); or iterative reconstruction. COMPARISON: CT head wo con* [id number] 09/17/2018 6:04 PM RADIATION DOSE METRICS: Total DLP (mGy-cm): 797.88 FINDINGS: Brain: No evidence of active or acute intracranial pathologic process, hemorrhage, or trauma. 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 Cerebral and cerebellar atrophy with ventricular dilatation greater than anticipated for patient's chronological age. No mass effect. No midline shift. Cerebral ventricles: No ventriculomegaly. Bones/joints: Unremarkable. No acute fracture. Paranasal sinuses: Visualized sinuses are unremarkable. No fluid levels. Mastoid air cells: Visualized mastoid air cells are well aerated. Soft tissues: Unremarkable. CT/CT head wo con* [id number] IMPRESSION: No evidence of active or acute intracranial pathologic process, hemorrhage, or trauma. ct l spine: Radiologist's impression: [address] [place] [address] CT Scan Report Signed Patient: Anamika Mo Unit #: [id number] : 1935 Age/Sex: 84 / F ADM Date: 05/17/20 Loc: ER Room/Bed: Attending Dr: Ordering Provider/Ordering MD: Rehana Ross MD Date of Service: 05/17/20 Procedure(s): CT lumbar spine wo con* [id number] Accession Number(s): [id number] Report Number: [id number] PROCEDURE INFORMATION: Exam: CT Lumbar Spine Without Contrast Exam date and time: 05/17/2020 6:58 PM Age: 84 years old Clinical indication: Injury or trauma; Fall; Blunt trauma (contusions or hematomas) TECHNIQUE: Imaging protocol: Computed tomography images of the lumbar spine without contrast. Radiation optimization: All CT scans at this facility use at least one of these dose optimization techniques: automated exposure control; mA and/or kV adjustment per patient size (includes targeted exams where dose is matched to clinical indication); or iterative reconstruction. COMPARISON: No relevant prior studies available. RADIATION DOSE METRICS: Total DLP (mGy-cm): 1024.41 FINDINGS: Vertebrae: There is no lumbar fracture. The vertebra maintain their height. There is a mild scoliosis. There is no fracture of the posterior elements. T12-L1: Vacuum degeneration of the disc. No central stenosis, foraminal stenosis or disc bulge. L1-L2: Vacuum degeneration of the disc. Mild disc bulge. No central or foraminal stenosis. L2-L3: Vacuum degeneration of the disc. Disc bulge. Facet and ligament hypertrophy. No central stenosis. No foraminal stenosis. L3-L4: Disc bulge and facet and ligament hypertrophy resulting in moderate central and foraminal stenosis. L4-L5: Disc bulge and facet and ligament hypertrophy resulting in moderate central stenosis. Mild foraminal stenosis. L5-S1: Minimal disc bulge. Facet hypertrophy. No central or foraminal stenosis. Soft tissues: Unremarkable. CT/CT lumbar spine wo con* [id number] IMPRESSION: 1. No fracture of the lumbar spine. 2. Degenerative findings with central and foraminal stenosis as detailed above. Discharge Plan Discharge Patient Disposition: Home Clinical Impression: Fall Qualifiers: Encounter type: initial encounter Qualified Code(s): W19.XXXA - Unspecified fall, initial encounter Contusion of right shoulder Qualifiers: Encounter type: initial encounter Qualified Code(s): S40.011A - Contusion of right shoulder, initial encounter Closed head injury Qualifiers: Encounter type: initial encounter Qualified Code(s): S09.90XA - Unspecified injury of head, initial encounter Condition: Stable Prescriptions: No Action metoprolol succinate 50 mg tablet extended release 24 hr 50 mg PO BID@0900,2100 RF: 0 lisinopril 20 mg tablet 20 mg PO DAILY@0900 RF: 0 venlafaxine 150 mg capsule,extended release 24hr 150 mg PO DAILY@0900 RF: 0 clopidogrel 75 mg tablet 75 mg PO DAILY@0900 RF: 0 liothyronine 5 mcg tablet 5 mcg PO DAILY@0900 RF: 0 levothyroxine 50 mcg tablet 50 mcg PO DAILY@0900 RF: 0 cyanocobalamin (vitamin B-12) 1,000 mcg/mL solution 1,000 mcg IM Q30D RF: 0 buspirone 10 mg tablet 10 mg PO TID PRN (Reason: Anxiety) RF: 0 furosemide 20 mg tablet 20 mg PO DAILY@0900 RF: 0 Levemir FlexTouch U-100 Insuln 100 unit/mL (3 mL) insulin pen 30 unit SUBCUT DAILY@2000 RF: 0 Aspir-81 81 mg Tablet,Delayed Release (Dr/Ec) 81 mg PO DAILY@0900 RF: 0 Humalog U-100 Insulin 100 unit/mL Solution 5 unit SUBCUT TID@0900,1200,2100 RF: 0 Lomotil 2.5-0.025 mg/5 mL Liquid 5 ml PO DAILY PRN (Reason: Diarrhea) RF: 0 Multivitamin 50 Plus Tablet 1 tab PO DAILY@0900 RF: 0 Metamucil 3.4 gram/5.4 gram Powder 1 tbsp PO BID@0900,2100 RF: 0 Zyprexa See Rx Instructions .ROUTE .COMPLEX RF: 0 potassium chloride 40 mEq/15 mL liquid 40 meq PO DAILY@0900 RF: 0 Discharge Orders: Discharge ED (Routine); Ordered 05/17/20 Ordered By: Rehana Ross Referrals: Gladys Gilbert MD [Primary Care Provider] - Discharge Diet: Advance as tolerated Discharge Activity: Resume usual activity Patient Instructions: Fall Prevention (ED) Coding Level of Care Code ED Sales Support Coordinator for [facility] Fwd Exam Comprehensive
[2020-05-17 18:50] VITALS: BP 162/71
--- NOTE | 2020-05-17 19:03 | PC.NURSE ---
report recieved from FAUSTINO Rosario and care transferred to FAUSTINO Zheng
[2020-05-17 19:25] VITALS: BP 141/64; PULSE 72; RESP 18; O2SAT 99
[2020-05-17 20:02] VITALS: BP 137/76; PULSE 80; RESP 16; O2SAT 100
== END 2020-05-17 20:00 | disposition home or self-care (01) ==
PROVIDERS: Emergency Provider Emergency Medicine; PCP Internal Medicine
DX: S40.011A Contusion of right shoulder, initial encounter (principal); S09.8XXA Other specified injuries of head, initial encounter; Z79.02 Long term (current) use of antithrombotics/antiplatelets; Z79.82 Long term (current) use of aspirin; Z79.4 Long term (current) use of insulin; W01.198A Fall on same level from slipping, tripping and stumbling with subsequent striking against other object, initial encounter; Y92.512 Supermarket, store or market as the place of occurrence of the external cause
CPT/HCPCS: 12345; 70450; 72125; 72131; 73030; 99281; 99283

== ENCOUNTER 2020-08-23 11:20 | Outpatient (CLI) | payer MEDICARE, SELFPAY ==
--- NOTE | 2020-08-23 11:35 | USCV_ITS ---
Anamika Mo Age: 84 Gender: F : 1935 Exam Date: 08/23/2020 11:44 Ordering Phys: Casi Ny HUMAN RESOURCES TECHNICIAN Technologist: Margarita Calderon Exam Location: [facility] – [place] Indication: LLE SWELLING HISTORY: Lower extremity swelling. PROCEDURES: Venous duplex imaging was performed in only the left lower extremity. The following venous structures were evaluated: common femoral vein, profunda vein, proximal portion of the greater saphenous vein, superficial femoral vein, and the popliteal vein. In addition, the posterior tibial and peroneal trunk were evaluated. Serial compression, augmentation maneuvers, and spectral Doppler flow evaluation were performed. FINDINGS: Normal 2-D Doppler and augmentation and compressibility throughout the lower extremity venous structures. Additional imaging through the proximal calf veins also reveals no thrombus. Limited evaluation of the greater saphenous vein is patent with no thrombus. CONCLUSIONS No DVT left lower extremity. Dr. Christina Richey DO (Electronically Signed) Final Date: 23 Aug 2020 12:17 S
== END 2020-08-23 11:21 | disposition home or self-care (01) ==
LOC: RAD 11:24
PROVIDERS: PCP Internal Medicine; Visit Provider Nurse Practitioner Family
DX: M79.89 Other specified soft tissue disorders (principal)
CPT/HCPCS: 93971